=== PATIENT | male | born 1970 | race Caucasian/White ===

== ENCOUNTER 2023-09-30 21:45 | Emergency (ER) | payer MEDICAID, OTHER ==
[~2023-09-30] VITALS: Ht 180.3 cm; Wt 102.0 kg
[2023-09-30 21:54] VITALS: BP 153/96; PULSE 82; RESP 20; TEMP 97.7; O2SAT 95
[2023-09-30 22:51] LABS: BASOPHILS % 0.5 % (0.0-2.0); EOSINOPHILS % 2.6 % (0.0-5.0); HEMATOCRIT. 43.8 % (42.0-52.0); HEMOGLOBIN. 15.1 g/dL (14.0-18.0); LYMPHOCYTES % 34.7 % (20.0-50.0); MEAN CORPUSCULAR HEMOGLOBIN 30.3 pg (28.0-32.0); MEAN CORPUSCULAR HGB CONC 34.4 g/dL (31.0-37.0); MEAN PLATELET VOLUME 8.4 fl (7.4-10.4); MONOCYTES % 9.9 % (2.0-8.0); NEUTROPHILS % 52.3 % (40.0-76.0); PLATELET 224 x1000/uL (130-400); RED BLOOD CELL COUNT 4.97 mill/uL (4.7-6.1); RED CELL DISTRIBUTION WIDTH 13.8 % (11.6-14.6); WHITE BLOOD COUNT 5.4 x1000/uL (4.5-11.0)
[2023-09-30 22:53] LABS: CHLORIDE 109 mEq/L (98-107); POTASSIUM 3.7 mEq/L (3.5-5.1); SODIUM 142 mEq/L (136-145)
[2023-09-30 22:54] LABS: CARBON DIOXIDE 27 mEq/L (21-32)
[2023-09-30 22:55] LABS: DIFFERENTIAL COMMENT 1
[2023-09-30 22:59] LABS: CREATININE 0.9 mg/dL (0.6-1.3); GLUCOSE 100 mg/dL (70-105); UREA NITROGEN BLOOD 15 mg/dL (9-23)
== END 2023-10-01 02:31 | disposition left against medical advice (07) ==
LOC: ER 21:45
DX: R30.0 Dysuria (principal); N30.00 Acute cystitis without hematuria; N12 Tubulo-interstitial nephritis, not specified as acute or chronic
CPT/HCPCS: 36415; 80048; 83880; 85025; 99283